=== PATIENT | female | born 2005 | race Caucasian/White ===

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

== ENCOUNTER 2023-12-03 09:42 | Emergency (ER) | payer MEDICAID ==
[~2023-12-03] VITALS: Ht 162.6 cm; Wt 45.9 kg
[2023-12-03 09:52] VITALS: BP 134/86; PULSE 70; TEMP 98.6; O2SAT 96
[2023-12-03 10:21] VITALS: RESP 14
[2023-12-03] MEDS: ibuprofen tablet 400 MG TABLET PO ONE (10:46)
== END 2023-12-03 11:12 | disposition home or self-care (01) ==
LOC: ER 09:42
DX: M25.512 Pain in left shoulder (principal)
CPT/HCPCS: 71045; 73030; 99284